=== PATIENT | female | born 1995 | race Caucasian/White ===

== ENCOUNTER 2017-02-11 17:23 | Emergency (ER) | payer BC ==
[2017-02-11] MEDS ORDERED: GI Cocktail Oral Solution 30 ML PO ONE (17:32)
[2017-02-11] MEDS ORDERED: Omeprazole 20 MG Cap.CR PO ONE (17:55)
--- NOTE | 2017-02-11 18:00 | EDM.PDOC ---
ED HPI GENERAL MEDICAL PROBLEM - General Chief Complaint: Allergic Reaction Stated Complaint: allergic reaction Time Seen by Provider: 02/11/17 17:30 Source of Information: Reports: Patient History Limitations: Reports: No Limitations - History of Present Illness Onset: Today, Sudden Duration: Hour(s): Location: Reports: Abdomen Quality: Reports: Burning Severity: Moderate Context: Reports: Other (new medication) Associated Symptoms: Reports: Nausea/Vomiting - Related Data Allergies Allergy/AdvReac Type Severity Reaction Status Date / Time amoxicillin trihydrate Allergy Cannot Verified 02/11/17 17:32 [From Augmentin] Remember azithromycin Allergy Pain Verified 02/11/17 17:32 cat dander Allergy Cannot Verified 02/11/17 17:32 Remember mold Allergy Cannot Verified 02/11/17 17:32 Remember pollen extracts Allergy Cannot Verified 02/11/17 17:32 Remember potassium clavulanate Allergy Cannot Verified 02/11/17 17:32 [From Augmentin] Remember Home Meds: Home Meds Fluticasone Propionate [Flonase] 2 sprays NASBOTH DAILY 10/22/15 [History] Norethindrone-Ethinyl Estrad [Cyclafem 1-35-28 Tablet] 1 tab PO DAILY 10/22/15 [ History] Spironolactone 50 mg PO BEDTIME 02/11/17 [History] Past Medical History Respiratory History: Reports: Asthma Neurological History: Reports: Concussion, Head Trauma, Migraines - Past Surgical History Head Surgeries/Procedures: Reports: None HEENT Surgical History: Reports: Adenoidectomy, Tonsillectomy Social & Family History - Tobacco Use Smoking Status *Q: Never Smoker - Alcohol Use Days Per Week of Alcohol Use: 0 - Recreational Drug Use Recreational Drug Use: No ED ROS ALLERGIC REACTION - Review of Systems Review Of Systems: See Below HEENT: Reports: No Symptoms Respiratory: Reports: No Symptoms Cardiovascular: Reports: No Symptoms GI/Abdominal: Reports: Abdominal Pain, Nausea : Reports: No Symptoms ED EXAM GENERAL NO PERIP PULSE - Physical Exam Exam: See Below Exam Limited By: No Limitations General Appearance: Mild Distress Throat/Mouth: Normal Oropharynx Neck: Supple Respiratory/Chest: Lungs Clear Cardiovascular: Regular Rate, Rhythm GI/Abdominal: Tender Course - Orders/Labs/Meds Orders: Active Orders 24 hr Category Date Time Status Omeprazole Med 02/11/17 17:55 Once 40 mg PO ONETIME ONE Meds: Medications Discontinued Medications Generic Name Dose Route Start Last Admin Trade Name Judson PRN Reason Stop Dose Admin Al Hydroxide/Mg Hydroxide 30 ml 02/11/17 17:32 02/11/17 17:39 Gi Cocktail PO 02/11/17 17:33 30 ml ONETIME ONE Administration - Re-Assessments/Exams Free Text/Narrative Re-Assessment/Exam: 02/11/17 17:59 Pt given GI cocktail and Omeprazole in ER Departure - Departure Time of Disposition: 18:00 Disposition: Home, Self-Care 01 Clinical Impression: Adverse drug effect Qualifiers: Encounter type: initial encounter Qualified Code(s): T88.7XXA - Unspecified adverse effect of drug or medicament, initial encounter - Discharge Information Additional Instructions: Stop Zithromax [place] diet Omeprazole as needed - My Orders Last 24 Hours: My Active Orders 02/11/17 17:55 Omeprazole 40 mg PO ONETIME ONE - Assessment/Plan Last 24 Hours: My Active Orders 02/11/17 17:55 Omeprazole 40 mg PO ONETIME ONE
[2017-02-11 19:22] VITALS: BP 129/79
== END 2017-02-11 18:30 | disposition home or self-care (01) ==
LOC: LL.ED 17:23
DX: R11.2 Nausea with vomiting, unspecified (principal); T36.3X5A Adverse effect of macrolides, initial encounter; J45.909 Unspecified asthma, uncomplicated; Z88.1 Allergy status to other antibiotic agents; Z91.048 Other nonmedicinal substance allergy status; Z88.8 Allergy status to other drugs, medicaments and biological substances; Z79.899 Other long term (current) drug therapy; Z90.49 Acquired absence of other specified parts of digestive tract; Z98.890 Other specified postprocedural states
CPT/HCPCS: 99284; A9270